=== PATIENT | male | born 1955 | race Caucasian/White ===

== ENCOUNTER → 2020-12-02 | Outpatient (CLI) | payer BC, OTHER | LOC: HEART 5 08:00 | DX: R00.2 Palpitations (principal) ==

== ENCOUNTER → 2021-02-04 | Outpatient (CLI) | payer BC, OTHER | LOC: HEART 5 08:55 | DX: R00.2 Palpitations (principal) | CPT/HCPCS: 94010 ==

== ENCOUNTER → 2021-02-17 | Outpatient (CLI) | payer BC, OTHER | LOC: ECHO 02-08 11:00 | DX: I47.2 Ventricular tachycardia (principal); R00.2 Palpitations; I10 Essential (primary) hypertension | CPT/HCPCS: ECHO; 78452; 93017; 93306; A9502; J2785 ==